=== PATIENT | female | born 1990 | race Caucasian/White ===

== ENCOUNTER 2018-10-24 09:09 | Outpatient (CLI) | payer MEDICAID, OTHER ==
[~2018-10-24] VITALS: Ht 167.6 cm; Wt 86.3 kg
[~2018-10-24 09:09] MED LIST: PREN1TAB62 PO
[2018-10-24 09:19] VITALS: BP 113/70; PULSE 69; RESP 20; Ht 167.6 cm; Wt 86.3 kg
--- NOTE | 2018-10-24 13:07 | PN ---
Triage Information Date/Time October 24, 2018 Reason for visit: Weeks of Gestation 28 weeks and 4 days /Para 4 para 3 Diabetes: none Hypertention: none Additional information 28-year-old with IUP at 28 weeks and 4 days with care with [facility] presents with complaint of dizziness and blurred vision for the past 2 days. She denies any headache, right upper quadrant pain epigastric pain, denies any leaking of fluid, vaginal bleeding or decreased movement. Antepartum course was uncomplicated. Denies any history of hypertension. She was sent from the clinic for evaluation rule out PIH. Patient denies any prior history of migraine in the past. Denies any headache currently. Reports her vision changes and dizziness as well as lightheadedness occurs when she changed her position. Objective Vital Signs Date Temp Pulse Resp B/P (MAP) Pulse Ox O2 O2 Flow FiO2 Time Delivery Rate 10/24/18 97.6 69 20 113/70 Room Air 09:19 (84) Heart Rate: 130's Heart Rate Comments Reassuring and category 1 Exam GA: A&O, NAD Abdomen" soft, non tender, no rebound tenderness Size consistent with date NST: Cat 1 BPP: 8 Results/Medications Result Diagram: 10/24/18 1000 10/24/18 1000 Results 24 hrs Laboratory Tests Test 10/24/18 09:00 10/24/18 10:00 Urine Color YELLOW Urine Clarity SLIGHTLY CLOUDY A Urine pH 7.0 Urine Specific [place] 1.008 Urine Ketones NEGATIVE Urine Nitrite NEGATIVE Urine Bilirubin NEGATIVE Urine Urobilinogen NEGATIVE Urine Leukocyte Esterase 2+ H Urine Microscopic RBC 1 Urine Microscopic WBC 7 H Urine Squamous Epithelial Cells FEW Urine Bacteria FEW A Urine Hemoglobin NEGATIVE Urine Glucose NEGATIVE Urine Total Protein NEGATIVE White Blood Count 6.0 # Red Blood Count 3.30 L Hemoglobin 11.2 L Hematocrit 34.1 L Mean Corpuscular Volume 103.3 H Mean Corpuscular Hemoglobin 33.9 H Mean Corpuscular Hemoglobin Concent 32.8 Red Cell Distribution Width 13.2 Platelet Count 210 Mean Platelet Volume 9.4 Immature Granulocytes % 0.700 H Neutrophils % 74.0 Lymphocytes % 17.3 Monocytes % 7.2 Eosinophils % 0.5 Basophils % 0.3 Nucleated Red Blood Cells % 0.0 Immature Granulocytes # 0.040 H Neutrophils # 4.4 Lymphocytes # 1.0 Monocytes # 0.4 Eosinophils # 0.0 Basophils # 0.0 Nucleated Red Blood Cells # 0.0 Sodium Level 138 Potassium Level 4.1 Chloride Level 108 Carbon Dioxide Level 24 Anion Gap 6 Blood Urea Nitrogen 8 Creatinine 0.43 L Est Glomerular Filtrat Rate mL/min > 60 Glucose Level 86 Uric Acid 3.1 Calcium Level 8.8 Total Bilirubin 0.3 Direct Bilirubin 0.00 Indirect Bilirubin 0.3 Aspartate Amino Transf (AST/SGOT) 24 Alanine Aminotransferase (ALT/SGPT) 16 Alkaline Phosphatase 72 Total Protein 6.2 Albumin 3.3 Globulin 2.90 Albumin/Globulin Ratio 1.13 Imaging Results PROCEDURE: US OB. CLINICAL INDICATION: Size and dates , labor TECHNIQUE: Multiple sonographic images of the pelvis and gravid uterus were obtained. The images were reviewed on a PACS workstation. COMPARISON: No prior studies are available for comparison. FINDINGS: Gestation: Single live intrauterine gestation. Cardiac activity: 135 beats per minute. Presentation: Transverse maternal right Placenta: Location: Anterior. Appearance: No previa or abruption. Measurements: BPD = 7.3 cm, 29 weeks and 1 day HC = 26.4 cm, 28 weeks and 5 days AC = 24.4 cm, 28 weeks and 5 days FL = 5.2 cm, 27 weeks and 5 days Gestational Age: AUA estimated gestational age: 28 weeks 4 days LMP estimated gestational age: 28 weeks 4 days AUA estimated date of delivery: 01/12/19 The EFW = 1219 g, 30.2%ile based on LMP age. RPTAT: AA IMPRESSION: Single live intrauterine gestation of 28 weeks 4 days by ultrasound criteria. .Thad Fung MD, MD Date Time Electronically viewed and signed by .Thad Fung MD, on 10/24/2018 09:52 .S/ CC: CARON DOSS MD [id number] PROCEDURE: US OB biophysical profile. CLINICAL INDICATION: labor TECHNIQUE: Multiple sonographic images of the pelvis were obtained. The images were reviewed on a PACS workstation. COMPARISON: None. FINDINGS: Single live intrauterine gestation. STEPH = 18.96 cm cm. Cardiac activity is present with 134 beats per minute. Transverse maternal right presentation. Placental location is anterior. Biophysical profile as follows: movement 2/2 tone 2/2 breathing 2/2 STEPH 2/2 Total 03/13 IMPRESSION: Biophysical profile 03/13. STEPH = 18.9 cm. RPTAT: [facility] Physician Nicholas Date Time Electronically viewed and signed by Physician Nicholas on 10/24/2018 10:02 Disposition: Discharge Assessment/Plan IUP at 28 weeks and 4 days Dizziness and light headadnes Orthostatic test is negative No Evidence of PIH Blood pressure serial during observation in triage they are all within normal limits. Normal growth and ultrasound noted. Normal amniotic fluid. Labs are negative for PIH No evidence of labor or PPROM no Ob issue at this time Dizziness, unclear etiology will send to ED for evaluation Advised the patient to see her primary care physician within 24 hours after discharge from the hospital. Strict labor precaution, PPROM precaution and proclaims a precaution discussed with patient. Signs and symptoms discussed with patient. Patient verbalized understanding. All questions were answered to patient's best satisfaction. She understands importance of follow-up within 24 hours with her primary OB office. BEATRICE ARAGON MD Oct 24, 2018 13:07
--- NOTE | 2018-10-24 13:24 | TRIAGE ---
OB Triage Datetime Report Generated by CPN: 10/24/2018 13:23 Datetime: 10/24/2018 12:13 Labor Evaluation Frequency: 0 Monitor Mode: External Heart Rate FHR Baseline Rate: 130 Monitor Mode: External US FHR Baseline Changes: No Baseline Change Variability: Moderate 6-25 bpm Accelerations: 15X15 Decelerations: None Category: Category I Pain Assessment Pain Scale: 0 Pain Presence: None/Denies Pain Type: N/A Pain Goal: 0 Datetime: 10/24/2018 11:13 Labor Evaluation Frequency: X1 Monitor Mode: External Duration (sec)2399: 40 Quality: Mild Pattern: Normal: <= 5 Contractions in 10 Minutes Resting Tone [place]: Relaxed Heart Rate FHR Baseline Rate: 140 Monitor Mode: External US FHR Baseline Changes: No Baseline Change Variability: Moderate 6-25 bpm Accelerations: 10X10 Decelerations: None Category: Category I Pain Assessment Pain Scale: 0 Pain Presence: None/Denies Pain Type: N/A Pain Goal: 0 Datetime: 10/24/2018 10:13 Labor Evaluation Frequency: 0 Monitor Mode: External Heart Rate FHR Baseline Rate: 140 Monitor Mode: External US FHR Baseline Changes: No Baseline Change Variability: Moderate 6-25 bpm Accelerations: 10X10 Decelerations: None Category: Category I Pain Assessment Pain Scale: 0 Pain Presence: None/Denies Pain Type: N/A Pain Goal: 0 Datetime: 10/24/2018 09:13 Stage of : OB Triage Assessment Type: Triage Maternal Assessment Level of Consciousness: Fully Conscious DTR's/Clonus: DTRs 2+; No Clonus Headache: Denies Blurred Vision: No Respiratory Effort: Unlabored; Regular Rhythm; Equal Expansion Nausea/Vomiting: Denies RUQ Epigastric Pain: Denies Lower Extremities Edema: Bilateral Lower Extremities Degree: None Upper Extremities Edema: None Degree: None Facial Edema: None Temperature Route: Axillary Fall Risk Assessment History of Falling: (0) No Secondary Diagnosis: (0) No Ambulatory Aid: (0) Bedrest/Nurse Assist IV Therapy: (0) No Gait: (0) Normal/Bedrest/Immobile Mental Status: (0) Oriented to Own Ability Fall Score: 0 Fall Risk Score Definition: No Risk: No action required Datetime: 10/24/2018 09:12 Monitor Mode: External Monitor Mode: External US Datetime: 10/24/2018 09:11 EGA: 28.4 Datetime: 10/24/2018 09:00 Time of Arrival: 10/24/2018 09:00 Arrived By: Wheelchair Arrived From: Home Chief Complaint: DIZZYNESS, BLURRY VISION, SWELLING Movement: Present Contractions: Denies/Absent Rupture of Membranes: Denies Vaginal Bleeding: None Vaginal Discharge: Denies Recent Sexual Intercouse: Denies Abdominal Trauma: Not Applicable Patient Complaints: None Time Provider Notified: 10/24/2018 09:39 Provider Notified: DR. DOSS Initial Plan: UA, BPP, EFM, EFW, CBC, URIC ACID, CMP
== END 2018-10-24 12:51 | disposition home or self-care (01) ==
LOC: OBT 09:09 → L-D 09:09 → OBT 12:51
PROVIDERS: ATTEND Obstetrics & Gynecology
DX: O26.892 Other specified pregnancy related conditions, second trimester (principal); Z3A.28 28 weeks gestation of pregnancy; R42 Dizziness and giddiness; H53.8 Other visual disturbances
CPT/HCPCS: 76815; 76818; 80053; 81001; 84560; 85025; G0463

== ENCOUNTER 2018-10-24 13:00 | Emergency (ER) | payer SELFPAY ==
[~2018-10-24] VITALS: Ht 167.6 cm; Wt 84.5 kg
[2018-10-24 13:15] VITALS: BP 134/63; PULSE 94; RESP 20; Ht 167.6 cm; Wt 84.5 kg
== END 2018-10-24 20:41 | disposition left against medical advice (07) ==
LOC: E/R 13:00
DX: Z53.21 Procedure and treatment not carried out due to patient leaving prior to being seen by health care provider (principal)

== ENCOUNTER 2018-12-11 14:15 | Inpatient (IN) | payer OTHER ==
[~2018-12-11] VITALS: Ht 167.6 cm; Wt 90.9 kg
[2018-12-11 15:27] VITALS: Ht 167.6 cm; Wt 90.9 kg
[2018-12-11 15:28] VITALS: BP 112/50; PULSE 72; RESP 20
[2018-12-11] MEDS: SOD CHLORIDE 0.9% 1,000 ML IV SCH (17:52)
[2018-12-11] MEDS: CEFTRIAXONE 1 GM/50 ML (PMX) 50 ML IVPB SCH (17:52)
--- NOTE | 2018-12-11 19:21 | HP ---
Date/Time of Note Date/Time of Note DATE: 12/11/18 TIME: 19:19 OB - History Hx of Present Chief Complaint: right flank pain Estimated Due Date: Jan 12, 2019 : 5 Para: 3 Spontaneous : 0 Therapeutic : 1 Care: Good Care Ultrasounds: Normal mid trimester US Obstetrical Complications: None Past Family/Social History * Past Medical, Surgical, Family and Obstetric Histories reviewed from chart. OB Admission Exam Vital Signs Vital Signs Vital Signs Date Temp Pulse Resp B/P (MAP) Pulse Ox O2 O2 Flow FiO2 Time Delivery Rate 12/11/18 98.2 72 20 112/50 Room Air 15:28 (70) Physical Exam HEENT: WNL Heart: Rhythm Normal Lungs: Clear, Equal Abdomen: WNL Extremities: Normal Reflexes: Normal Heart Rate: 120's Accelerations: Accelerations Present Decelerations: No Decelerations Varibility: Moderate OB Assessment/Plan Reason for admission: other Other Assessment: R/O pyelonephritis Plan: Other Other plan: Admit Urine culture IV CARON Jacobs MD December 11, 2018 19:21
[2018-12-11] MEDS: PRENATAL VITAMIN PO SCH (21:49)
[2018-12-11] MEDS: FERROUS SULFATE (EC) 325 MG TAB PO SCH (21:49)
[2018-12-12] MEDS: FERROUS SULFATE (EC) 325 MG TAB PO SCH ×3 (09:35→21:30)
[2018-12-12] MEDS: SOD CHLORIDE 0.9% 1,000 ML IV SCH (13:13)
[2018-12-12] MEDS: CEFTRIAXONE 1 GM/50 ML (PMX) 50 ML IVPB SCH (18:12)
[2018-12-12] MEDS: PRENATAL VITAMIN PO SCH (21:30)
--- NOTE | 2018-12-12 22:11 | QN ---
Documentation Comment Patient feels better Afebrile VSS Strip Reactive Stable Continue IV Rocephin. CARON DOSS MD December 12, 2018 22:11
[2018-12-13] MEDS: SOD CHLORIDE 0.9% 1,000 ML IV SCH (06:11)
[2018-12-13] MEDS: PRENATAL VITAMIN PO SCH (10:15)
[2018-12-13] MEDS: FERROUS SULFATE (EC) 325 MG TAB PO SCH (10:15)
--- NOTE | 2018-12-13 14:10 | DS ---
Date/Time of Note Date/Time of Note DATE: 12/13/18 TIME: 14:10 Obstetrical Discharge Record Final Diagnosis Final Diagnosis: not delivered Other Final Diagnosis Pyelonephritis Condition on Discharge Physical Assessment Voiding: Yes Bowel Movement: Yes Calf Tenderness: No Patient Condition: Stable CARON DOSS MD December 13, 2018 14:10
[2018-12-13] MEDS: CEFTRIAXONE 1 GM/50 ML (PMX) 50 ML IVPB SCH (14:47)
== END 2018-12-13 17:30 | disposition home or self-care (01) | DRG 833 ==
LOC: OBT 14:15 → PP1 14:16 → OBT 14:17 → PP1 14:17
PROVIDERS: ADMIT Obstetrics & Gynecology; ATTEND Obstetrics & Gynecology
DX: O23.03 Infections of kidney in pregnancy, third trimester (principal); Z3A.35 35 weeks gestation of pregnancy
CPT/HCPCS: 76775; 76815; 87086; J0696; J7030

== ENCOUNTER 2019-01-17 15:59 | Inpatient (IN) | payer OTHER ==
[~2019-01-17] VITALS: Ht 160 cm; Wt 95.6 kg
[2019-01-17 16:28] VITALS: BP 124/66; PULSE 71; RESP 18; Ht 160 cm; Wt 95.6 kg
[2019-01-17] MEDS ORDERED: CARBOPROST 250 MCG INJ IM PRN (16:30)
[2019-01-17] MEDS ORDERED: MISOPROSTOL 200 MCG TAB PR PRN (16:30)
[2019-01-17] MEDS ORDERED: OXYTOCIN 30 UNITS/LR 500 ML IV PRN (16:30)
[2019-01-17] MEDS ORDERED: AMPICILLIN 2 GM/NS (PMX) 100 ML IV ONE (16:30)
[2019-01-17] MEDS ORDERED: METHYLERGONOVINE 0.2 MG INJ IM PRN (16:30)
[2019-01-17] MEDS ORDERED: LIDOCAINE 1% (MPF) 30 ML INJ INJ PRN (16:30)
[2019-01-17] MEDS ORDERED: OXYTOCIN 30 UNITS/LR 500 ML IV SCH ×2 (16:30)
[2019-01-17] MEDS: LACTATED RINGER'S 1,000 ML IV SCH ×2 (17:48→22:01)
[2019-01-17] MEDS ORDERED: AMPICILLIN 1 GM/NS (PMX) 50 ML IV SCH (20:30)
[2019-01-18] MEDS: LACTATED RINGER'S 1,000 ML IV SCH ×2 (06:07→13:59)
[2019-01-18] MEDS ORDERED: OXYTOCIN 30 UNITS/LR 500 ML IV SCH (13:00)
--- NOTE | 2019-01-18 14:43 | HP ---
Date/Time of Note Date/Time of Note DATE: 01/18/19 TIME: 14:39 OB - History Hx of Present Chief Complaint: contractions Estimated Due Date: Jan 21, 2019 : 5 Para: 3 Spontaneous : 0 Therapeutic : 1 Care: Good Care Ultrasounds: Normal mid trimester US Obstetrical Complications: None Medical Complications: None Past Family/Social History * Past Medical, Surgical, Family and Obstetric Histories reviewed from chart. GBS Status: Negative OB Admission Exam Vital Signs Vital Signs Vital Signs Date Temp Pulse Resp B/P (MAP) Pulse Ox O2 O2 Flow FiO2 Time Delivery Rate 01/17/19 97.7 71 18 124/66 16:28 (85) Physical Exam HEENT: WNL Heart: Rhythm Normal Lungs: Clear, Equal Abdomen: WNL Extremities: Normal Reflexes: Normal Cervical Dilatation: 3cm Effacement: 50% Station: -1 Membranes: Intact Heart Rate: 120's Accelerations: Accelerations Present Decelerations: No Decelerations Varibility: Moderate Last 72 hours Lab Results CBC & BMP 01/17/19 16:41 OB Assessment/Plan Reason for admission: active labor Plan: Expectant Management, Other Other plan: augmentation of labor as needed CARON DOSS MD Jan 18, 2019 14:43
[2019-01-18] MEDS ORDERED: BUTORPHANOL 2 MG INJ ONE (14:55)
[2019-01-18] MEDS ORDERED: BUTORPHANOL 2 MG INJ IV PRN (15:00)
--- NOTE | 2019-01-18 16:23 | LDN ---
Date/Time of Note Date/Time of Note DATE: 01/18/19 TIME: 16:21 Delivery Summary Weeks of Gestation 39 weeks and 4 days Placenta Delivered: Spontaneously Meconium: none Episiotomy: No Laceration repair: Second degree perineal alceration repaired with 3-0 Vicryl. Anesthesia type: Local Estimated blood loss: 200 Sponge & Needle done & correct: Yes All needle counts correct: Yes Any foreign bodies felt in the: No Delivery Information Sex Infant Sex: female Apgars 1 Minute: 9 5 Minute: 9 Suctioning Nose & mouth suctioned at adam: No Delee suction performed: No Umbilical Cord Umbilical cord with: 3 Vessels Cord presentations: nuchal cord Nuchal cord present X: 1 Cord Blood was obtained: Yes Mother & Baby Disposition Disposition Mom & Baby to Maternity; Good: Yes CARON DOSS MD Jan 18, 2019 16:23
[2019-01-18 17:30] VITALS: BP 121/61; PULSE 52; RESP 18
[2019-01-18] MEDS: LACTATED RINGER'S 1,000 ML IV* SCH (17:43)
[2019-01-18] MEDS ORDERED: CARBOPROST 250 MCG INJ IM PRN (18:00)
[2019-01-18] MEDS ORDERED: ACETAMINOPHEN 325 MG TAB PO PRN (18:00)
[2019-01-18] MEDS ORDERED: METHYLERGONOVINE 0.2 MG INJ IM PRN (18:00)
[2019-01-18] MEDS ORDERED: OXYTOCIN 30 UNITS/LR 500 ML IV PRN (18:00)
[2019-01-18] MEDS ORDERED: MISOPROSTOL 200 MCG TAB PR PRN (18:00)
[2019-01-18] MEDS ORDERED: HYDROCODONE/APAP (5/325) TAB PO PRN (18:00)
[2019-01-18] MEDS ORDERED: DIBUCAINE 1% 30 GM OINT TOP PRN (18:00)
[2019-01-18] MEDS: WITCH HAZEL/GLYCERIN PAD PR PRN (18:25)
[2019-01-18] MEDS: BENZOCAINE 20% 56 ML SPRAY TOP PRN (18:26)
[2019-01-18] MEDS: IBUPROFEN 600 MG TAB PO SCH ×2 (18:27→23:22)
[2019-01-18 18:30] VITALS: BP 111/58; PULSE 58
[2019-01-18 19:50] VITALS: BP 116/56; PULSE 67; RESP 18
[2019-01-18] MEDS: SENNA/DOCUSATE NA (8.6MG/50MG) TAB PO SCH (22:29)
[2019-01-19 00:39] VITALS: BP 119/51; PULSE 60; RESP 18
[2019-01-19] MEDS: LACTATED RINGER'S 1,000 ML IV* SCH ×2 (01:43→09:43)
[2019-01-19 03:34] VITALS: BP 120/59; PULSE 66; RESP 18
[2019-01-19] MEDS: IBUPROFEN 600 MG TAB PO SCH ×4 (06:10→23:02)
[2019-01-19 08:00] VITALS: BP 95/51; PULSE 68
[2019-01-19] MEDS: SENNA/DOCUSATE NA (8.6MG/50MG) TAB PO SCH ×2 (09:00→20:10)
--- NOTE | 2019-01-19 15:56 | DS ---
Date/Time of Note Date/Time of Note DATE: 01/19/19 TIME: 15:55 Obstetrical Discharge Record Final Diagnosis Final Diagnosis: Term delivered Vaginal Delivery Obstetrical Delivery: Spontaneous Condition on Discharge Physical Assessment Voiding: Yes Bowel Movement: Yes Breast: Soft, non-tender, Filling Fundus: Firm Calf Tenderness: No Patient Condition: Stable CARON DOSS MD Jan 19, 2019 15:56
[2019-01-19 16:00] VITALS: BP 113/63; PULSE 76
[2019-01-19 19:30] VITALS: BP 100/53; PULSE 71; RESP 18
[2019-01-19] MEDS: BENZOCAINE 20% 56 ML SPRAY TOP PRN (20:10)
[2019-01-19] MEDS: WITCH HAZEL/GLYCERIN PAD PR PRN (20:10)
[2019-01-20 04:22] VITALS: BP 85/49; PULSE 65; RESP 16
[2019-01-20] MEDS: IBUPROFEN 600 MG TAB PO SCH ×2 (05:44→13:37)
[2019-01-20 08:00] VITALS: BP 92/66; PULSE 73; RESP 16
[2019-01-20] MEDS: SENNA/DOCUSATE NA (8.6MG/50MG) TAB PO SCH (08:52)
[2019-01-20] MEDS ORDERED: DIPHTH/TET/ACEL PERTUSS (ADULT) 0.5 ML VIAL IM* ONE (09:00)
--- NOTE | 2019-01-21 16:02 | DELSUM ---
Delivery Summary A-C Datetime Report Generated by CPN: 01/21/2019 16:01 DELIVERY PERSONNEL Transition Rn: [place], Alea MATERNAL INFORMATION Delivery Anesthesia: Local Medications in Delivery: oxytocin post placenta, lidocaine Delivery QBL (ml): 200 Placenta Cultured: No Maternal Complications: None LABOR SUMMARY EDC: 01/20/2019 00:00 No. Babies in Womb: 1 Attempted: No Labor Anesthesia: IV Sedation LABOR INFORMATION Reason for Induction: Not Applicable Onset of Labor: 01/17/2019 14:30 Complete Dilatation: 01/18/2019 15:00 Oxytocin: Augmentation Group B Beta Strep: Negative Steroids Given: None Reason Steroids Not Administered: Not Applicable MEMBRANES Membranes Rupture Method: Artificial Rupture of Membranes: 01/18/2019 14:31 Length of Rupture (hr): 0.63 Amniotic Fluid Color: Clear Amniotic Fluid Amount: Small Amniotic Fluid Odor: None STAGES OF LABOR Stage 1 hr: 24 Stage 1 min: 30 Stage 2 hr: 0 Stage 2 min: 9 Stage 3 hr: 0 Stage 3 min: 6 Total Time in Labor hr: 24 Total Time in Labor min: 45 VAGINAL DELIVERY Episiotomy: None Laceration Extension: Second Degree Laceration Type: Perineal Laceration Repair: Yes Initial Vag Sponge Count: 10 Final Vag Sponge Count: 10 Initial Vag Sharps Count: 1 Final Vag Sharps Count: 3 Sponge Count Correct: Yes Sharps Count Correct: Yes BABY A INFORMATION Infant Delivery Date/Time: 01/18/2019 15:09 Method of Delivery: Vaginal Born in Route : No : N/A Forceps: N/A Vacuum Extraction: N/A Shoulder Dystocia : No SHOULDER DYSTOCIA BABY A Delivery Date/Time: 01/18/2019 15:09 PRESENTATION/POSITION BABY A Presentation: Cephalic Cephalic Presentation: Vertex Vertex Position: Left Occipital Posterior Breech Presentation: N/A PLACENTA INFORMATION BABY A Placenta Delivery Time : 01/18/2019 15:15 Placenta Method of Delivery: Spontaneous Placenta Status: Delivered SCORES BABY A Heart Rate 1 min: >100 bpm Resp Effort 1 min: Good Cry Reflex Irritability 1 min: Cough/Sneeze/Pulls Away Muscle Tone 1 min: Active Motion Color 1 min: Body [place], Extremit Blue Resuscitation Effort 1 min: Tactile Stimulation; Oxygen SCORE 1 MIN: 9 Heart Rate 5 min: >100 bpm Resp Effort 5 min: Good Cry Reflex Irritability 5 min: Cough/Sneeze/Pulls Away Muscle Tone 5 min: Active Motion Color 5 min: Body [place], Extremit Blue Resuscitation Effort 5 min: Tactile Stimulation; Oxygen SCORE 5 MIN: 9 INFORMATION BABY A Gestational Age at Delivery: 39.0 Gestational Status: Full Term- 39- 40.6 Weeks Outcome : Liveborn Infant Condition : Stable Sex: Female IDENTIFICATION/MEDS BABY A ID Band Number: [id number] ID Band Location: Right Leg; Left Arm Sensor Applied: Yes Sensor Number: [id number] Sensor Location : Cord Clamp Vitamin K Given : Not Given Erythromycin Given: Not Given WEIGHT/LENGTH BABY A Infant Birthweight (gm): 3990 Infant Weight (lb): 8 Weight (oz): 13 Length (in): 21.00 Length (cm): 53.34 CORD INFORMATION BABY A No. Cord Vessels: 3 Nuchal Cord : Around Neck x1, Loose Cord Blood Taken: Yes Suction: Mouth; Nose ASSESSMENT BABY A Infant Complications: None Physical Findings at Delivery: Within Normal Limits Respirations: Appears Normal Enrollment Eligibility Representative/ALS Called : No Transferred To: Remains with Mother
== END 2019-01-20 15:05 | disposition home or self-care (01) | DRG 807 ==
LOC: OBT 15:59 → L-D 16:00 → OBT 16:25 → L-D 16:25 → PP1 01-18 17:10
PROVIDERS: ADMIT Obstetrics & Gynecology; ATTEND Obstetrics & Gynecology
PROC: 10E0XZZ Delivery of Products of Conception, External Approach (ICD-10-PCS; principal; 2019-01-18)
PROC: 0KQM0ZZ Repair Perineum Muscle, Open Approach (ICD-10-PCS; 2019-01-18)
DX: O70.1 Second degree perineal laceration during delivery (principal); Z37.0 Single live birth; O69.81X0 Labor and delivery complicated by cord around neck, without compression, not applicable or unspecified; Z3A.39 39 weeks gestation of pregnancy; Z23 Encounter for immunization
CPT/HCPCS: 76815; 76818; 85025; 85610; 85730; 86592; 86850; 86900; 86901; G0463; J0595; J2590; J7120

== ENCOUNTER 2019-04-29 09:36 | Observation (INO) | payer OTHER ==
[~2019-04-29] VITALS: Ht 167.6 cm; Wt 87.1 kg
[2019-04-29] VITALS (28 sets, daily range): BP systolic 104–163; BP diastolic 61–90; PULSE 46–88; RESP 10–25; Ht 167.6 cm; Wt 87.1 kg
[~2019-04-29 09:36] MED LIST changes: +ACETAMINOPHEN 500 MG TAB PO ONE; +CEFAZOLIN 2 GM/50 ML (PMX) 50 ML IVPB ONE; +PREN-19 PO
[2019-04-29] MEDS: LACTATED RINGER'S 1,000 ML IV SCH ×2 (10:44→20:45)
[2019-04-29] MEDS ORDERED: FENTAnyl 50 MCG/ML VIAL ONE (11:00)
[2019-04-29] MEDS ORDERED: ROCURONIUM 50 MG INJ ONE (11:00)
[2019-04-29] MEDS ORDERED: DESFLURANE 15 MIN ONE (11:00)
[2019-04-29] MEDS ORDERED: MIDAZOLAM 1 MG/ML 2 ML INJ ONE (11:01)
[2019-04-29] MEDS ORDERED: ONDANSETRON 4 MG INJ ONE (11:01)
[2019-04-29] MEDS ORDERED: LIDOCAINE 2% (SDV) 5 ML INJ ONE (11:01)
[2019-04-29] MEDS ORDERED: PROPOFOL 40 ML ONE (11:01)
[2019-04-29] MEDS ORDERED: FAMOTIDINE 20 MG INJ ONE (11:01)
[2019-04-29] MEDS ORDERED: CEFAZOLIN 1 GM INJ ONE (11:02)
[2019-04-29] MEDS ORDERED: DEXAMETHASONE 4 MG/ML 5 ML INJ ONE (11:26)
[2019-04-29] MEDS ORDERED: DIPHENHYDRAMINE 50 MG INJ IV PRN (11:30)
[2019-04-29] MEDS ORDERED: KETOROLAC 15 MG INJ IV PRN (11:30)
[2019-04-29] MEDS ORDERED: hydrALAzine 20 MG INJ IV PRN (11:30)
[2019-04-29] MEDS ORDERED: ATROPINE 1 MG/10 ML SYRINGE IV PRN (11:30)
[2019-04-29] MEDS ORDERED: FENTAnyl 50 MCG/ML VIAL IV PRN ×2 (11:30)
[2019-04-29] MEDS ORDERED: OXYCODONE/ACETAMINOPHEN (5/325) TAB PO PRN ×2 (11:30)
[2019-04-29] MEDS ORDERED: EPHEDrine 25 MG/5 ML SYG IV PRN (11:30)
[2019-04-29] MEDS ORDERED: ALBUTEROL 0.083% (NEB) 2.5 MG/3 ML AMP HHN PRN (11:30)
[2019-04-29] MEDS ORDERED: LEVALBUTEROL (NEB) 0.63 MG/3 ML AMP HHN PRN (11:30)
[2019-04-29] MEDS ORDERED: morphine 2 MG INJ IV PRN ×2 (11:30)
[2019-04-29] MEDS ORDERED: HYDROmorphONE 1 MG/5 ML IV SYRINGE IV PRN ×3 (11:30)
[2019-04-29] MEDS ORDERED: LABETALOL HCL 20MG INJ IV PRN (11:30)
[2019-04-29] MEDS ORDERED: SUGAMMADEX SODIUM 200 MG/2 ML VIAL IV ONE (12:16)
[2019-04-29] MEDS ORDERED: BUPIVACAINE 0.5%/EPI (SDV) 10 ML INJ ONE (12:17)
[2019-04-29] MEDS ORDERED: ALBUTEROL 0.083% (NEB) 2.5 MG/3 ML AMP ONE ×2 (13:02→13:03)
[2019-04-29] MEDS ORDERED: PROVENTIL HFA 6.7GM INHALER ONE (13:03)
[2019-04-29] MEDS: ONDANSETRON 4 MG INJ IV PRN ×2 (13:37→17:33)
[2019-04-29] MEDS ORDERED: ACETAMINOPHEN 500 MG TAB PO PRN ×2 (14:00→19:00)
[2019-04-29] MEDS ORDERED: ONDANSETRON 4 MG INJ IV PRN ×2 (14:00→19:00)
[2019-04-29] MEDS ORDERED: KETOROLAC 30 MG INJ IV PRN (14:00)
[2019-04-29] MEDS ORDERED: ACETAMINOPHEN 1000MG/100ML IV 100 ML IVPB ONE (14:30)
[2019-04-29] MEDS: ACETAMINOPHEN 1000MG/100ML IV 100 ML IVPB SCH (20:46)
[2019-04-29] MEDS: KETOROLAC 30 MG INJ IV PRN (23:17)
[2019-04-30 00:56] VITALS: BP 111/55; PULSE 83; RESP 18
[2019-04-30] MEDS: ACETAMINOPHEN 1000MG/100ML IV 100 ML IVPB SCH (03:03)
[2019-04-30 08:09] VITALS: BP 95/53; PULSE 90; RESP 18
[2019-04-30] MEDS ORDERED: ACETAMINOPHEN 1000MG/100ML IV 100 ML IVPB SCH (09:00)
[2019-04-30] MEDS: KETOROLAC 30 MG INJ IV PRN ×2 (09:15→15:30)
== END 2019-04-30 19:15 | disposition home or self-care (01) ==
LOC: SDS 09:36 → REC 18:53 → MS1 20:26
PROVIDERS: ADMIT Obstetrics & Gynecology; ATTEND Obstetrics & Gynecology
DX: Z30.2 Encounter for sterilization (principal)
CPT/HCPCS: 58600; 84703; 85025; 86850; 86900; 86901; 88302; J0131; J0690; J1100; J1170; J1885; J2250; J2405; J3010; J7120; Z7500; Z7512; Z7610; 96366; 96375; 96376; 99217; G0378